=== PATIENT | male | born 1950 | race American Indian/Alaskan Native ===

== ENCOUNTER 2022-09-15 09:33 | Inpatient (IN) | payer MEDICARE, OTHER ==
[~2022-09-15] VITALS: Ht 175.3 cm; Wt 108.9 kg
[2022-09-15] MEDS ORDERED: ATOR10 PO (16:15)
[2022-09-15] MEDS ORDERED: Prinivil10 MG PO (16:15)
[2022-09-15] MEDS ORDERED: LEVSOD75 PO (16:16)
[2022-09-15] MEDS ORDERED: SULI150 (16:16)
--- NOTE | 2022-09-16 05:17 | NUR ---
AVIATION OPERATIONS SPECIALIST SUMMARY PT AAOX4 AND PLEASANT. CONTINUES TO HAVE PAIN OF THE LOWER BACK FROM FALL. DILAUDID DOCUMENTATION SPECIALIST IN USE. PT STATES DOCUMENTATION SPECIALIST DOES HELP WITH HIS PAIN BUT HE DOESN'T USE IT ALL THAT OFTEN DUE TO SOME NAUSEA HE GETS FROM THE DILAUDID. OFFERED TORADOL AND OTHER PAIN MEDICATION OPTIONS TO PT HOWEVER PT DENIES NEED. PT REPORTS MOSTLY BEING IN PAIN WITH MOVEMENT. ON 2L O2 VIA NC DUE TO NARCOTICS, O2 SATS >92% THROUGH NIGHT. ABRASIONS ON ARMS CLEANED AND DRESSED. VSS, WILL CONTINUE TO MONITOR.
[2022-09-16 09:05] LABS: Bun/Creatinine Ratio 22.3 (12.0-20.0); Calcium, Blood 9.1 mg/dL (8.5-10.1); Creatinine, Blood 0.76 mg/dL (0.60-1.20); Potassium, Blood 3.9 mmol/L (3.5-5.5)
--- NOTE | 2022-09-16 19:33 | NUR ---
SHIFT SUMMARY PATIENT ALERT AND ORIENTED THROUGHOUT SHIFT. BACK PAIN SEVERE BUT MANAGEMENT IMPROVED THROUGHOUT DAY. INITIALLY WAS USING DILAUDID OUTPLACEMENT CONSULTANT BUT WAS NAUSEATED WITH OUTPLACEMENT CONSULTANT DOSES. CHANGED TO FENTANYL IV PUSHES Q2 WITH NORCO AND TORADOL. THIS SEEMED TO WORK BETTER, ALTHOUGH STILL SEVERE PAIN WITH MOVEMENT. LSO BACK BRACE OBTAINED AND FITTED TO PATIENT TODAY. R SHOULDER XRAYS REVEALED NO FRACTURES. ABLE TO ROLL AND ASSIST WITH REPOSITIONS IN BED, NOT OUT OF BED TODAY. USING URINAL. TOLERATING A FEW BITES OF FINGER FOOD AND SIPS OF WATER. SPOUSE ATTENTIVE WHEN IN ROOM. PLAN TO GET UP TOMORROW 09/17/22 WITH PHYSICAL THERAPY.
--- NOTE | 2022-09-17 03:40 | NUR ---
ROOF FIXER SUMMARY PT BACK PAIN HAS BEEN BETTER CONTROLLED TONIGHT COMPARED TO PREVIOUS NIGHT. PT REPORTS PAIN LEVEL 6-7 PRIOR TO MEDICATION MOST OF THE NIGHT. HAVE BEEN ALTERNATING NORCO AND FENTANYL Q2H, PT DOES STATE THAT FENTANYL "WORKS A BIT BETTER". PT STILL UNABLE TO AMBULATE AND HAS ONLY BEEN ABLE TO REPOSITION HIMSELF IN BED DUE TO PAIN. VSS, WILL CONTINUE TO MONITOR.
--- NOTE | 2022-09-17 10:43 | NUR ---
1015 oob with PT, pt declines LSO brace as reports it worsens his pain
--- NOTE | 2022-09-17 10:57 | NUR ---
0800 NORCO 2 TABS GIVEN AND MED DID NOT SHOW UP DOCUMENTED ON EMAR. TINA SEBASTIAN RN WITNESSED PAIN MED ADMINISTRATION
--- NOTE | 2022-09-17 11:41 | NUR ---
[address] PER CART. PT MEDICATED WITH FENTANYL PRIOR TO TRANSPORT
--- NOTE | 2022-09-17 12:08 | NUR ---
[address] PT REPORTS PAIN 10/10 AFTER MOVEMENT
--- NOTE | 2022-09-17 13:52 | NUR ---
PT SUTURES REMOVED FROM POSTERIOR NECK.PT HAD MOHS PROCEDURE DONE AT THIS SITE PRIOR TO ADMIT. 3 SUTURES REMOVED FROM SITE. NO REDNESS, BRUISING, SWELLIN OR DRAINAGE PRESENT
--- NOTE | 2022-09-17 18:04 | NUR ---
OOB TO RESTROOM WITH STANDBY ASSIST X1. SAT IN CHAIR X20 MIN . PT REPORTS 10/10 PAIN WITH ANY MOVEMENT AND PAIN 2-3/10 WHEN LYING STILL. DENIES SOB, OXYGEN AT 2 LITERS. OXYGEN REMOVED WHILE PT IN CHAIR AND BIOX RANGED 84-88% USING IS WITH GOOD EFFORT. RIGHT FOREARM AND LEFT ELBOW DRESSINGS DRY AND INTACT.PT HAS TAKEN SIPS OF WATER AND SMALL AMOUNTS JELLO-REPORTS SOME NAUSEA WITH MOVEMENT AND DECLINES FOOD TRAYS AT THIS TIME
--- NOTE | 2022-09-18 05:26 | NUR ---
SHIFT SUMMARY A/O X4- BEDREST THROUGHOUT THE SHIFT. PAIN MANAGED W/ IV AND PO PAIN MEDICATIONS. NO VOID AT THIS TIME, REPORTS HE GENERALLY URINATES WHEN HE GETS UP IN THE MORNING TIME. VITAL SIGNS STABLE, CURRENTLY ON 2L NC TO MAINTAIN SATURATIONS ABOVE 90%. ENCOURAGING DEEP BREATHING EXERCISES, I/S AT BEDSIDE. WILL CONTINUE TO MONITOR AND REPORT TO ONCOMING RN.
[2022-09-18 09:08] LABS: Bun/Creatinine Ratio 14.7 (12.0-20.0); Calcium, Blood 9.1 mg/dL (8.5-10.1); Creatinine, Blood 0.88 mg/dL (0.60-1.20); Potassium, Blood 3.8 mmol/L (3.5-5.5)
--- NOTE | 2022-09-19 09:48 | NUR ---
SUMMARY PT WITH NO ACUTE CHANGES. ANXIOUS TO HAVE IMPROVED ACTIVITY FFOR CHANCE OF GOING HOME
--- NOTE | 2022-09-19 18:06 | NUR ---
SHIFT SUMMARY PT A&OX4, VSS/RA WHILE AWAKE/2LNC WHILE ASLEEP, BIOX ON SATS >93%, PAIN MANAGED PER EMAR, VOIDING WELL, AMB SBA FWW GB TO BRP/UP TO CHAIR T/O SHIFT WITH REST PERIODS IN BED, KUMAR PO. TELEPHONE CALL TO [facility] R/T LSO BRACE: THEY ONLY DO URGENT CALLS ON . RN WILL HAVE TO CALL BACK ON WEDNESDAY TO ARRANGE FOR THEM TO ROUND AND REFIT BRACE ON PT SINCE IT RESTS RIGHT ON PT'S FX'D RIBS. PT DECLINES TO WEAR BRACE. WILL REPORT TO ONCOMING NOC RN.
--- NOTE | 2022-09-20 08:02 | NUR ---
SUMMARY PT REPORTED ADEQUATE PAIN CONTROL TONIGHT WHILE AT REST.CONT WITH INCREASED PAIN WHEN MOBILE.
[2022-09-20] MEDS ORDERED: GABA100 PO (14:48)
[2022-09-20] MEDS ORDERED: Norco 7.5-3251 EACH PO (14:49)
[2022-09-20] MEDS ORDERED: LIDO700A20 TOP (14:50)
[2022-09-20] MEDS ORDERED: Robaxin750 MG PO (14:51)
[2022-09-20] MEDS ORDERED: MIRALAX17 GM PO (14:51)
--- NOTE | 2022-09-20 15:15 | NUR ---
DISCHARGE SUMMARY PT A&OX4, VSS/RA WHILE AWAKE, 2LNC WHILE SLEEPING, KUMAR PO, VOIDING/BM LG TODAY, PAIN MANAGED PER EMAR, AMB FWW IN ROOM/BRP AND HALLWAY, IV DC'D. DC INST PROVIDED. PT AND REP UNDERSTANDING THOSE INSTRUCTIONS INCLUDING FU WITH SURGEON IF NEEDED, PCP FOR POST DC AND SLEEP STUDY TO EVAL OXYGEN NEEDS NOC, AND PAIN MGMT DOCTOR, SCRIPTS READY AT [facility], TCDB/I.S., OOB/AMB SHORT FREQUENT WITH REST PERIODS, DISCUSSED PAIN MANAGEMENT.
== END 2022-09-20 15:12 | disposition home or self-care (01) | DRG 551 ==
LOC: ER 09:33 → SURS 09:34 → ERHOLD 09:34 → SURS 17:46
PROVIDERS: ADMIT Surgery
DX: S32.018A Other fracture of first lumbar vertebra, initial encounter for closed fracture (principal); S27.1XXA Traumatic hemothorax, initial encounter; S22.41XA Multiple fractures of ribs, right side, initial encounter for closed fracture; S32.028A Other fracture of second lumbar vertebra, initial encounter for closed fracture; S32.038A Other fracture of third lumbar vertebra, initial encounter for closed fracture; M25.511 Pain in right shoulder; I10 Essential (primary) hypertension; E78.00 Pure hypercholesterolemia, unspecified; E03.9 Hypothyroidism, unspecified; E66.9 Obesity, unspecified; G47.30 Sleep apnea, unspecified; Z96.651 Presence of right artificial knee joint; W10.8XXA Fall (on) (from) other stairs and steps, initial encounter; Z68.35 Body mass index [BMI] 35.0-35.9, adult; Z88.2 Allergy status to sulfonamides; Z98.890 Other specified postprocedural states; Z79.811 Long term (current) use of aromatase inhibitors; Z79.899 Other long term (current) drug therapy; Z79.1 Long term (current) use of non-steroidal anti-inflammatories (NSAID); M62.838 Other muscle spasm
CPT/HCPCS: 36415; 71260; 72131; 73030; 74177; 80048; 94762; 96372; 96374-59; 96375; 96376; 97110; 97116; 97161; 97530; 99285-25; A9270; G0378; J1170; J1650; J1885; J2405; J2765; J3010; J7050; Q9967

== ENCOUNTER → 2023-06-01 | Outpatient (CLI) | payer MEDICARE, OTHER ==
[~2023-06-01] MED LIST: ATOR10 PO; GABA100 PO; LEVSOD75 PO; LIDO700A20 TOP; MIRALAX17 GM PO; Norco 7.5-3251 EACH PO; Prinivil10 MG PO; Robaxin750 MG PO; SULI150
== END ==
LOC: LAB SHORT 08:19 → PLD 08:19
DX: L30.8 Other specified dermatitis (principal)
CPT/HCPCS: 88305; 88312; 88313

== ENCOUNTER → 2023-06-01 | Outpatient (CLI) | payer MEDICARE, OTHER | END | disposition home or self-care (01) | LOC: LAB 16:20 → LAB SHORT 16:20 | DX: R06.00 Dyspnea, unspecified (principal) | CPT/HCPCS: 83880 ==

== ENCOUNTER → 2023-11-23 | Outpatient (CLI) | payer MEDICARE, OTHER ==
[2023-11-23 19:13] LABS: BASOPHILS ABSOLUTE AUTO 0.05 K/mm3 (0.00-0.23); BASOPHILS PERCENT AUTO 1 % (0-2); EOSINOPHILS ABSOLUTE AUTO 0.41 K/mm3 (0.00-0.68); EOSINOPHILS PERCENT AUTO 5 % (0-6); Hematocrit 44.2 % (37.0-53.0); Hemoglobin 14.6 g/dL (13.5-17.5); IMMATURE GRAN ABSOLUTE AUTO 0.06 K/mm3 (0.00-0.10); IMMATURE GRAN PERCENT AUTO 1 % (0-1); LYMPHOCYTES ABSOLUTE AUTO 1.32 K/mm3 (0.84-5.20); LYMPHOCYTES PERCENT AUTO 15 % (21-46); MONOCYTES ABSOLUTE AUTO 0.71 K/mm3 (0.16-1.47); MONOCYTES PERCENT AUTO 8 % (4-13); Mean Corpuscular HGB 30.7 pg (26.0-34.0); Mean Corpuscular Volume 93 fL (80-100); Mean Platelet Volume 10.9 fL (9.1-12.4); NEUTROPHILS ABSOLUTE AUTO 6.26 K/mm3 (1.96-9.15); NEUTROPHILS PERCENT AUTO 71 % (41-73); Platelet Count 302 K/mm3 (150-400); RDW Coefficient Variation 12.7 % (11.7-14.2); RDW Standard Deviation 43.3 fL (35.1-46.3); Red Blood Cell Count 4.75 M/mm3 (4.30-5.90); White Blood Cell Count 8.81 K/mm3 (4.00-11.30)
[2023-11-24 12:02] LABS: CHOL/HDL RATIO 3.8; Cholesterol 141 mg/dL (50-200); HDL Cholesterol 37 mg/dL (>39); LDL/HDL RATIO 1.4; Low Density Lipoprotein Chol 52 mg/dL (0-110); Triglycerides 258 mg/dL (30-160); Very Low Density Lipoprot Chol 51 mg/dL (6-32)
[2023-11-25 12:10] LABS: HEMOGLOBIN A1C 6.1 % (4.8-5.6)
[2023-11-25 16:10] LABS: A/G RATIO 1.7 (1.2-2.2); BILIRUBIN, TOTAL 0.6 mg/dL (0.0-1.2); CALCIUM, SERUM 9.6 mg/dL (8.6-10.2); CREATININE, SERUM 0.9 mg/dL (0.76-1.27); GLOBULIN, TOTAL 2.6 g/dL (1.5-4.5); POTASSIUM, SERUM 4.5 mmol/L (3.5-5.2)
== END | disposition home or self-care (01) ==
LOC: LAB SHORT 17:24 → LAB 17:24
PROVIDERS: Family Medicine
DX: E03.9 Hypothyroidism, unspecified (principal); I10 Essential (primary) hypertension; R73.9 Hyperglycemia, unspecified
CPT/HCPCS: 80053; 80061; 83036; 84443; 85025